=== PATIENT | male | born 1980 | race Hispanic/Latino ===

== ENCOUNTER → 2024-02-22 09:07 | Outpatient (REF) | payer OTHER, SELFPAY ==
[2024-02-22 11:28] LABS: Glycohemoglobin (HgbA1c) 5.9 % (4.0-5.6); HDL Cholesterol 46 mg/dl; LDL Cholesterol, Calculated 121 mg/dl; Total Cholesterol 192 mg/dl (50-199); Triglyceride 127 mg/dl (10-149); Very Low Density Lipoprotein 25 mg/dl (0-30)
[2024-02-22 11:44] LABS: Vitamin D, 25-OH*** 28.6 ng/mL (30-80)
== END ==
LOC: REG 09:07
PROVIDERS: ATTENDING PHYSICIAN Nurse Practitioner Adult Health
DX: R73.03 Prediabetes (principal); E55.9 Vitamin D deficiency, unspecified; B00.52 Herpesviral keratitis; E78.2 Mixed hyperlipidemia
CPT/HCPCS: 36415; 80061; 82306; 83036